=== PATIENT | male | born 1980 | race African-American/Black ===

== ENCOUNTER 2020-10-24 05:58 | Day surgery (SDC) | payer OTHER ==
[~2020-10-24] VITALS: Ht 167.6 cm; Wt 76.5 kg
[2020-10-24] MEDS ORDERED: HYDROmorphone 2 MG/ML VIAL IVP PRN (06:00)
[2020-10-24] MEDS ORDERED: fentaNYL PF VIAL 100 MCG/2 ML VIAL IVP PRN ×2 (06:00)
[2020-10-24] MEDS ORDERED: IV RINGERS,LACTATED 1000ML 1,000 ML IV SCH (06:00)
[2020-10-24] MEDS ORDERED: PROCHLORPERAZINE 10 MG/2 ML VIAL. IVP PRN (06:00)
[2020-10-24] MEDS ORDERED: ceFAZolin SODIUM IV Push 1 GM VIAL. IVP PRN (06:00)
[2020-10-24] MEDS ORDERED: MORPHINE SULFATE 2 MG/ML INJ. IVP PRN (06:00)
[2020-10-24 06:29] VITALS: BP 154/89
[2020-10-24] MEDS ORDERED: LIDOCAINE 1%/EPI 1:100,000 20 ML VIAL. ONE (07:05)
[2020-10-24] MEDS ORDERED: MIDAZOLAM HCL/PF 2 MG/2 ML VIAL. ONE ×2 (07:11→07:52)
[2020-10-24] MEDS ORDERED: fentaNYL PF VIAL 100 MCG/2 ML VIAL ONE ×2 (07:11→07:51)
[2020-10-24] MEDS ORDERED: LIDOCAINE 2% PF 5 ML VIAL. ONE (07:51)
[2020-10-24] MEDS ORDERED: PROPOFOL 10 MG/ML (20ML) VIAL. IV ONE (07:51)
[2020-10-24] MEDS ORDERED: ONDANSETRON PF 4 MG/2 ML VIAL. ONE (07:52)
[2020-10-24] MEDS ORDERED: DEXAMETHASONE SOD PHOS 4 MG/ML VIAL ONE (07:52)
[2020-10-24] MEDS ORDERED: PHENYLEPHRINE in 0.9% NACL PF 1 MG/10 ML SYRINGE. IV ONE (07:54)
[2020-10-24] MEDS ORDERED: SEVOFLURANE 31 TO 60 MINUTES. IH ONE (08:09)
--- NOTE | 2020-10-24 08:25 | PDOC4 ---
Operative Note Operative Note Operative Note: Preoperative Diagnosis: Left lateral abdominal mass Postoperative Diagnosis: Same Procedure: Excision of left lateral abdominal mass Surgeon: Isra Actuarial Consultant: Jonathan SO Anesthesia: General EBL: 10 mL Specimen: Left lateral abdominal mass, 9 X 7.5 cm, extension to muscle, no anthony tional margins Drains: None Complications: None Indication: The patient is a 40-year-old male who was referred due to an enla rging left lateral abdominal mass. The plan is for excision of the mass. The risks of surgery were discussed which include bleeding, infection, recurrence, pain, wound healing problems, anesthetic risk, potential need for additional surgery procedure. He understands and would like to proceed. Description: The patient was taken to the operating room and placed supine on the operating table. General anesthesia was performed. He was then rolled with his right side down exposing the left lateral abdomen. The skin was prepped with ChloraPrep and draped in a standard surgical manner. An incision was made overlying the mass with a scalpel. Cautery dissection was carried down into the subcutaneous tissues. The mass was then exposed and comprised of lobulated adipose tissue consistent with a large lipoma. The mass was mobilized from the surrounding tissues with a combination of blunt and cautery dissection. The mass extended down to the level of the muscle. The mass was taken off of the muscle with cautery and measured 9 x 7.5 cm and was sent to pathology. No additional margins of tissue were obtained. Hemostasis was achieved with cautery. The subcutaneous tissue was approximated with 3-0 Vicryl. The skin was closed with 4-0 Monocryl and infiltrated with half percent Marcaine with epinephrine. Steri-Strips and a sterile dressing were applied. The patient tolerated the procedure well and was sent to the recovery room in stable condition. At the end of the case all counts were correct. JOSELYN ORTEGA MD Oct 24, 2020 08:25
[2020-10-24] MEDS ORDERED: HYDR-2759 PO (08:28)
--- NOTE | 2020-10-24 08:31 | DISCH ---
DISCHARGE INSTRUCTIONS Condition on Discharge Condition on Discharge: Stable Activity After Discharge Activity Instructions for Disc: Activity as tolerated Wound Incision Care Wound/Incision Care: Other, see below (keep dressing clean and dry X 72 hours, may then remove and shower) Follow-Up Follow up with: Dr Ortega in 2 weeks in office, call for appt [phone] JOSELYN ORTEGA MD Oct 24, 2020 08:30
[2020-10-24 09:08] VITALS: BP 128/89
--- NOTE | 2020-10-25 15:23 | PATHOLOGY ---
[facility] Accession Number: [id number] . 01 Material submitted: . flank - LEFT FLANK MASS. Modifiers: left . 01 Clinical history: . LEFT FLANK MASS EXCISION OF LEFT FLANK MASS . 02 Diagnosis: Segment of fibroadipose tissue, left flank mass: - Lipoma. LBQ 10/25/2020 1349 Local . 02 Comment: There is no evidence of malignancy. (JPM/db; 10/25/2020) . 02 Electronically signed: . Murtaza Ro MD, Pathologist NPI- [id number] . 01 Gross description: . The specimen is received in formalin, labeled "Christian Lara, left flank mass". Received is an intact segment of light venegas-yellow soft tissue measuring 6.3 x 6.0 x 4.5 cm. The surgical margin is inked. Sectioning reveals light yellow-venegas cut surfaces. The specimen is serially sectioned and submitted representatively in cassettes A1 to A2.([facility]; 10/24/2020) [facility] 10/24/2020 1747 Local . 02 Pathologist provided ICD-10: D17.1 . 02 CPT . 772407 Specimen Comment: A courtesy copy of this report has been sent to [phone] Specimen Comment: Report sent to Performed at: 01 [facility] [address], [place] [id number] MD Fuentes Elliott MD Phone: [phone] Performed at: [facility] [address], [place] [id number] MD Murtaza Ro MD Phone: [phone]
== END 2020-10-24 09:40 | disposition home or self-care (01) ==
LOC: SURG 05:58
PROVIDERS: ATTEND Surgery
DX: D17.1 Benign lipomatous neoplasm of skin and subcutaneous tissue of trunk (principal); R19.00 Intra-abdominal and pelvic swelling, mass and lump, unspecified site; Z79.899 Other long term (current) drug therapy; Z98.890 Other specified postprocedural states; Z68.27 Body mass index [BMI] 27.0-27.9, adult
CPT/HCPCS: 22903; A4364; A4930; A6402; J0690; J1100; J2250; J2370; J2405; J2704; J3010; J3490; 88304; A4452